=== PATIENT | male | born 1950 | race Caucasian/White ===

== ENCOUNTER → 2020-08-01 10:54 | Outpatient (CLI) | payer OTHER, SELFPAY ==
[2020-08-01] MEDS: COVID-19 VACC #1, MRNA(MOD) 100 MCG/0.5 ML VIAL IM (11:03)
== END ==
PROVIDERS: Visit Provider Internal Medicine
DX: Z23 Encounter for immunization (principal)
CPT/HCPCS: 0011A; 91301

== ENCOUNTER → 2020-08-29 10:31 | Outpatient (CLI) | payer OTHER, SELFPAY ==
[2020-08-29] MEDS: COVID-19 VACC #2, MRNA(MOD) 100 MCG/0.5 ML VIAL IM (10:41)
== END ==
PROVIDERS: Visit Provider Internal Medicine
DX: Z23 Encounter for immunization (principal)
CPT/HCPCS: 0012A; 91301

== ENCOUNTER → 2022-04-16 11:55 | Outpatient (CLI) | payer OTHER, SELFPAY ==
[2022-04-16 12:40] LABS: COVID19 -Nasal RAPID Negative (Negative)
== END ==
PROVIDERS: PCP Family Medicine; Referring Provider Orthopaedic Surgery Orthopaedic Surgery of the Spine; Visit Provider Orthopaedic Surgery Orthopaedic Surgery of the Spine
DX: Z20.822 Contact with and (suspected) exposure to COVID-19 (principal)
CPT/HCPCS: 87635; C9803

== ENCOUNTER 2022-04-19 06:17 | Inpatient (IN) | payer OTHER, SELFPAY ==
[2022-04-12 10:51] VITALS: BMI 33.6
[2022-04-19] VITALS (19 sets, daily range): BP systolic 106–154; BP diastolic 46–98; PULSE 77–111; RESP 11–91; TEMP 35.9–37.6; O2SAT 4–103; BMI 33.6
[2022-04-19] MEDS: LACTATED RINGERS 1,000 ML 42 ML IV ×2 (06:53→10:25)
[2022-04-19] MEDS: ACETAMINOPHEN 325 MG TABLET 975 MG PO (07:28)
[2022-04-19] MEDS: PREGABALIN 75 MG CAPSULE PO (07:28)
--- NOTE | 2022-04-19 07:46 | PM.PREOP ---
Pre-operative Note COVID-19 COVID-19 status: Negative Result date/Date tested (Pos, Neg/Pending): 04/18/22 Criteria for continued procedure: Expected advancement of disease process, Possibility delay results in more complex future surgery or treatment, Increased loss of function, Continuing or worsening of significant or severe pain, Deterioration of the patient's condition or overall health and Delay expected to result in less-positive ultimate med/surg outcome Interval Note History & Physical reviewed/Exam performed by Physician: Yes Changes to H&P: No
[2022-04-19] MEDS: CEFAZOLIN 2 GM/100 ML PREMIX 100 ML IV (07:55)
--- NOTE | 2022-04-19 08:29 | SUR.OPER ---
Prone on spine table, head in foam head support, padded chest and pelvic supports, gel pad at knees, lower legs supported by pillows; nipples, genitalia and toes free of pressure, arms secured on foam padded arm boards at <90 degrees abduction. Tape over blanket at thigh secured to table.
[2022-04-19] MEDS: BUPIVACAINE LIPOSOME 266 MG/20 ML VIAL INJ (08:33)
[2022-04-19] MEDS: BUPIVACAINE 0.25% (PF) VIAL 30 ML INJ (08:35)
--- NOTE | 2022-04-19 11:53 | P.OP_ITS ---
Operative Date/Time/Diagnoses Date of procedure: 04/19/22 Time of procedure: 07:40 Pre-op diagnosis: 1. L2-3, L3-4 spinal stenosis 2. L2-3, L3-4 spondylolisthesis Post-op diagnosis: same Procedure & Clinicians Procedure: 1. L2-3, L3-4 Postero-lateral and posterior interbody fusion 2. L2-3, L3-4 interbody cage placement. 3. L2-3, L3-4 decompressive laminectomy with bilateral facetecomies 4. L2-3, L3-4 Posterior segmental instrumentation 5. [place] of bone marrow from iliac crest 6. Utilization of microsurgical technique and operating microscope 7. Utilization of robotic assisted navigation Same procedure as scheduled: Yes Indications: Patient has been having chronic back pain and worsening lumbar radiculopathy. Patient failed multiple conservative management with worsening pain weakness and numbness in her lower extremity. Patient has been having difficulty performing activity of daily living. After discussing risks benefits of treatment options, patient elected proceed with surgery. Surgeon: Cara Marlow Senior Courtroom Clerk: Monik Rizzo Click Yes if Unassisted: No Anesthesia Type: General Operative Notes Closure Type: primary Specimen(s): none sent Prosthetic devices, grafts, tissues, transplants, or devices: Globus CREO MIS screws, Rise cages Applied: catheter Estimated Blood Loss (mL): 100 Blood products transfused: none Procedure in detail: Patient was seen in the preoperative area. Risks and benefits of the surgery was discussed with the patient. Informed consent was obtained from the patient and placed in the chart. Surgical site was marked. Patient was taken to the operative room. General anesthesia was administered. Prophylactic antibiotic was given to the patient less than 30 min before the incision was made. Patient was placed into a prone position on the Damon table. Patient's back was then prepped and draped in the sterile fashion. Time-out was performed at this time. After patient was prepped and draped, patient's PSIS was palpated and marked bilaterally. Small 1 cm incision was made over the PSIS for placement of the reference probes. Two trocar was placed into the PSIS 1 on each side. The reference probe was attached to the trocar of the reference apparatus. At this time the C-arm imaging was used to confirm AP and lateral of L2, L3-L4 vertebrae and merged the C-arm imaging using the [employer] robotic navigation system with the CT of the lumbar spine. After successful merging was completed and confirmed, skin marker was used to ev out the skin incision using the [employer] robotic arm. Bilateral incision was made at this time. Pre templated trajectory was used and guided using the [employer] robotic navigation system for bilateral L2 L3, L4 pedicle screw placement. This was done by using the robotic arm to guide the high-speed bur to make a cortical entry point. Next a drill was placed also using the robotic arm and guided using the navigation system drilling partially through bilateral L2, L3, L4 pedicles. Next L2, L3, L4 pedicle screws it was pre templated and measured was placed onto the power regional driver and inserted into the pedicles bilaterally. After all 6 screws were placed C-arm imaging was taken of both AP and lateral to co nfirm the placement. Excellent placement of the screws were confirmed and a matched precisely with the pre planned screw placement using the navigation system. MARs retractor was inserted using [employer] guidence. Globus MARS retractors was placed inside the incision and docked onto the L2, L3 lamina. Using microsurgical technique and operating microscope, a L3, L4 laminectomy and L2-3, L3-4 facetectomy was performed using a Kerrison rongeur. Patient was found have severe lateral recess and neural foramen stenosis which was fully decompressed after the laminectomy facetectomy. More than 75% of the facets were removed during the process of decompression rendering L2-3, L3-4 level grossly unstable and required a fusion procedure at the same time. The disc space at L2-3, L3-4 was identified, and a total diskectomy was performed at L2- 3, L3-4 level. The endplates were decorticated using a rasp and shaver. The total diskectomy and decortication was performed at L2-3, L3-4 level in order to to accomplish a L2-3, L3-4 fusion. The local bone from the laminectomy and facetectomy was saved for local bone grafting. After the total diskectomy and decortication was completed, Trifecta bone graft material was combined with local bone that was harvested earlier. At this time, a separate skin is incision was made over the iliac crest. A Jamshidi needle was inserted into the iliac crest through a separate skin incision. 5 cc of bone marrow aspiration was obtained through the separate skin incision using a Jamshidi needle from the iliac crest. The bone marrow aspirat ion was combined with local bone and the Trifecta bone grafting material. The bone grafting material was placed into the L2-3, L3-4 interbody space along with expandable cages. One cage each was inserted into the L2-3 L3-4 interbody space along with bone graft material. The cage was expanded to its maximum height using the torque limiting screwdriver. The disc preparation as well as the cage insertion were also performed under navigation guidance. After the cage was placed, AP and lateral C-arm imaging was taken to confirm placement of the cage and excellent position was confirmed. Globus MARS retractor was inserted and docked onto the L2-3, L3-4 posterolateral gutter on the right side. Using the power drill, posterior-lateral decortication was performed at L2-3, L3-4 level until bleeding cortical bone was identified. The remaining bone grafting material was placed into the L2-3, L3-4 posterior lateral gutter he order to accomplish posterolateral fusion at the L2- 3, L3-4 level. At this time the tulips were attached to the L2, L3-L4 pedicle screw shanks. After measuring the length of the rods, they were inserted into the tulips of the pedicle screws and locked in place using locking caps and torque limiting screwdriver bilaterally. Total 6 caps and 2 titanium rods was used in order to complete the posterior instrumentation construct. After all the hardware was placed, and confirmed with AP and lateral C-arm imaging, the wound was then irrigated with sterile normal saline and packed with Ray-Le gauze for 3 min to accomplish hemostasis. After the gauze was removed the deep fascia was closed with #1 Vicryl suture. The subcutaneous layer was closed with 2-0 Vicryl. The skin was closed with skin rosalva. Patient tolerated the procedure well. There were no complications. Neuro monitoring system was used to monitor patient's neurologic status throughout entire procedure. There was no disturbance of the neural monitoring signals throughout the case. Complications: none Post-operative Condition: stable Disposition: PACU Plan for aftercare: Admit to inpatient hospital
--- NOTE | 2022-04-19 12:00 | DI.RAD.S_ITS ---
PROCEDURE: XR LUMBAR SPINE 2-3V INDICATIONS: L2-3, L3-4 TLIF/ROBOT TECHNIQUE: 2 spot fluoroscopic intraoperative images of the lumbar spine. COMPARISON: [facility], [place], CT LUMBAR SPINE WITHOUT CONTRAST, 01/12/2022, 7:58. [facility], [place], XR LUMBAR SPINE 2 OR 3 VIEWS, 09/03/2019, 9:51. FINDINGS: Spot fluoroscopic intraoperative images demonstrate posterior fixation hardware at the L2-3 and L3-4 levels with pedicle screws , interbody rods, and disc spacers. Postsurgical changes are seen in the overlying soft tissues. IMPRESSION: Status post posterior lumbar spinal fusion with expected postoperative appearance. Approved by: Dennis Bajwa M.D. on 04/19/2022 at 13:03
[2022-04-19] MEDS: ALBUTEROL 2.5 MG/3 ML NEB (ADULT) INH (12:13)
[2022-04-19] MEDS: hydrOXYzine pamoate 25 MG CAPSULE PO ×2 (12:40→20:33)
[2022-04-19] MEDS: OXYCODONE IR 5 MG TABLET PO (12:42)
--- NOTE | 2022-04-19 13:01 | SUR.PHASEI ---
Pt awake, alert, continued to deny any respiratiory difficutly. O2 sat down to 82% on 5L intermittent then up to 95%. RT here. CPAP from home being set up at this time.
--- NOTE | 2022-04-19 13:04 | SUR.PHASEI ---
[address] Dillard. Pt denies SOB or respiratory difficulty. O2 sat 88-91% on 5L NC. Plan: use IS and consult respiratory PRN.
[2022-04-19] MEDS: SODIUM CHLORIDE 0.9% 1,000 ML 100 ML IV (13:56)
[2022-04-19] MEDS: CLINDAMYCIN 900 MG/50 ML PIGGYBACK 50 MG IV ×2 (14:31→20:47)
[2022-04-19] MEDS: HYDROMORPHONE 0.5 MG INJ IV (14:31)
[2022-04-19] MEDS: DUTASTERIDE 0.5 MG CAPSULE PO (14:38)
--- NOTE | 2022-04-19 16:07 | PT.IIE ---
Current Diagnoses Spondylolisthesis, lumbar region (04/19/22) Spinal stenosis, lumbar region with neurogenic claudication (04/19/22) Arthrodesis status (04/19/22) Surgery Performed Operation Date: 04/19/22 07:45 Actual Procedures p L2-3, L3-4 TLIF w. posterior instrumentation-Robot(Not Applicable) - Cara Marlow MD Surgical History (Last Updated 04/12/22 @ 11:22 by Michelle Mahoney, RN) H/O vasectomy History of lumbar spinal fusion (1976) Hx of bilateral cataract extraction Hx of heart artery stent (02/25/21) Medical History (Last Updated 04/12/22 @ 14:52 by Michelle Mahoney RN) Alcoholism COPD (chronic obstructive pulmonary disease) Easy bruisability Enlarged prostate Hearing impaired HLD (hyperlipidemia) HTN (hypertension) Myocardial infarction (02/23/21) ELAINE on CPAP RLS (restless legs syndrome) SCC (squamous cell carcinoma) Sciatica Spinal stenosis Physical Therapy Inpatient Evaluation/Re-Eval M1 PT/OT-IP Prior Functional Status Start: 04/19/22 15:13 Freq: NEEDED Status: Active Protocol: Document 04/19/22 16:07 AW (Rec: 04/19/22 17:14 AW [id number]) Medical Review Prior Functional Status Medical History Reviewed Yes Communication WNL Mobility and Gait Indpendent without device. Pt states that going up hills would cause a burning sensation along his low back and right buttock into his leg . Activities of Daily Living and IADL's Independent. Prior Functional Level (Other details) Pt has history of lumbar fusion in 1975. He had a cardiac stent placed in the last five years. He has ELAINE and manages with CPAP at home. Social History Household Members spouse Living Arrangements House Number of Floors (Floors) Two Floors Number of Stairs To Enter/Railing? 1 ELIJAH no rail. 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 There is a basement but pt does not need to go downstairs. Home Environment Standard Height Toilet,Walk in Shower Home Equipment Front Wheel Walker,Straight Cane,Hand Held Shower,Oilseed Meat Presser, Grab Bars In Shower Additional Social History Comment Pt has an adjustable bed. He lives with his spouse, Roxana, who is retired. She will be available and able to assist at discharge. 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 M2 PT-IP Current Condition Start: 04/19/22 15:13 Freq: NEEDED Status: Active Protocol: Document 04/19/22 16:07 AW (Rec: 04/19/22 17:14 AW [id number]) Physical Therapy Current Condition Current Condition Evaluation Date 04/19/22 Treatment Diagnosis s/p L2-3 L3-4 TLIF; difficulty in walking Onset Date 04/19/22 M3 PT-IP Subjective Start: 04/19/22 15:13 Freq: NEEDED Status: Active Protocol: Document 04/19/22 16:07 AW (Rec: 04/19/22 17:14 AW [id number]) Subjective Physical Therapy Visit Type Type Initial Evaluation Visit Start Time 15:35 Visit Stop Time 16:07 Total Visit Minutes 32 Notes Pt's spouse was present throughout Physical Therapy Visit Comments Patient Comments Pt is willing to participate with PT Patient Goals Return home with spouse support. Eventual return to work Therapy Pain Assessment Pain When Pain Assessed During Mobility Pain Present Pain Present Pain Reported Location Back Intensity 4 Scale Used Numeric (0 - 10) Pain Management Techniques Modification of Treatment,Re- positioning,Timing of Activity with Medications M4 PT-IP Mobility and Gait Start: 04/19/22 15:13 Freq: NEEDED Status: Active Protocol: Document 04/19/22 16:07 AW (Rec: 04/19/22 17:14 AW [id number]) PT-Bed Mobility Assessment Rolling Type of Rolling Log Rolling,Roll to Right Level of Assist Minimal Assistance,1 Person Assistance Supine to Sit Supine to Sit Minimal Assistance,1 Person Assistance Sit to Supine Sit to Supine Minimal Assistance,1 Person Assistance PT-Transfer Assessment Sit to and From Stand Sit to and from Stand Minimal Assistance,1 Person Assistance,Use of Upper Extremities Equipment Transfer Assistive Device Gait Belt,Front Wheeled Walker Orthotic/Prosthetic Devices or Brace: No Transfers Transfer Destination Bed Transfer Technique pt ambulated with FWW Transfer Ability Level of Assist Minimal Assistance,1 Person Assistance,Use of Upper Extremities Comments Mobility Comments Pt was lying in bed as PT arrived. SpO2 94% on 3L/min O2 . BP was 128/84 HR 116 at rest . RN was aware of tachycardia. Educated pt on back precautions and pt needed cues and min A to get up to right side of bed with log roll. He sat EOB and denied lightheadedness. He stood min A and used FWW to shift weight and take marching steps before walking 20 feet in the room. He was unsteady and needed CGA/min A. Pt began to complain of dizziness as he approached the bed again. Instructed pt to sit. BP was 111/76 HR 115 SpO2 94% on 3L/ min. Pt was assisted back to supine with reverse log roll min A. Left pt with call light and tray table in reach. Reported VS to RN. Gait Assessment Gait Gait Assistance Required: Contact Guard Assist,Minimum Assistance,1 Person Assist Distance (Feet) 20 Assistive Devices Assistive Device Gait Belt,Front Wheeled Walker Orthotic/Prosthetic Devices or Brace: No Gait Deviations General Gait Pattern Antalgic,Decreased Feet Clearance Factors Limiting Gait Function Factors Limiting Gait Function Decreased Strength,Limited Range of Motion,Pain,Poor Balance,Poor Safety Awareness Comments Gait Comments See mobility comments for details. Stair Climbing Assessment Comments Stair Climbing Comments Not assessed. PT-Balance Assessment Sitting Balance and Reactions Static Sitting Balance Ability Good Dynamic Sitting Balance Ability Good Standing Balance and Reactions Static Standing Balance Ability Fair Dynamic Standing Balance Ability Fair Device Used FWW M5 PT-IP Objective Assessments Start: 04/19/22 15:13 Freq: NEEDED Status: Active Protocol: Document 04/19/22 16:07 AW (Rec: 04/19/22 17:14 AW [id number]) Orientation Orientation/Cognition Level of Alertness Alert Orientation Name,Day of Week,Place, Situation Language Function Ability Hard of Hearing Gross Range of Motion Lower Extremity ROM Assessment Within Functional Limits Strength Lower Extremity Strength Hip 4/5 Knee 4+/5 Ankle 4+/5 Sensation Assessment Sensation Gross Sensation WNL M6 PT-IP Treatment Start: 04/19/22 15:13 Freq: NEEDED Status: Active Protocol: Document 04/19/22 16:07 AW (Rec: 04/19/22 17:14 AW [id number]) Physical Therapy Treatment Education Education Provided Precautions,Weight Bearing Status,Post-Op Packet,Safety Other Treatments Other Treatment Performed Educated pt and spouse on back precautions and log roll bed mobility. M7 PT-IP Assessment and Plan Start: 04/19/22 15:13 Freq: NEEDED Status: Active Protocol: Document 04/19/22 16:07 AW (Rec: 04/19/22 17:14 AW [id number]) PT Summary Assessment and Plan Potential Rehabilitation Potential Good Status of Condition at Evaluation Evolving Summary Impairments Pain,Strength,Balance,Bed Mobility,Transfers,Gait Assessment Summary Roberto is a 72 yo man seen for PT evaluation on POD0 following L2-3 L3-4 TLIF. He is independent in all regards at baseline. On assessment today, pt required min assist for bed mobility, ambulation with FWW, and transfers. He was limited by lightheadedness and persistent tachycardia. PT anticipates pt will progress during his hospital stay and be safe to discharge home with spouse support. Will continue to assess. Goals Bed Mobility Goal Independent Transfer Goal Independent,Front Wheeled Walker Gait Goal Independent,Front Wheel Walker Gait Distance 200 Other Goals Improve transfers and gait to independent without device Days to Meet Goals 2 Frequency of Treatment Frequency Of Treatment Twice a Day Treatment Plan Physical Therapy Treatment Plan Bed Mobility Training,Transfer Training,Gait Training, Therapeutic Exercise,Balance Retraining,Post Op Education, Discharge Planning,Hot or Cold Pack,Neuromuscular Re-ed Precautions Lumbar Precautions Log Roll,No Twisting,Limit Bending,Lifting Restriction of 10 lbs,Gait Belt above Incisional Area Other Precautions HR Recommendations To Nursing Amount of Assist Needed 1 Person Assist Discharge Recommendations PT Discharge Recommendations Home with Assistance Transportation Needs at Discharge Private Vehicle
[2022-04-19] MEDS: ACETAMINOPHEN 325 MG TABLET 650 MG PO (18:46)
[2022-04-19] MEDS: PRAMIPEXOLE 0.25 MG TABLET PO (20:26)
[2022-04-19] MEDS: EZETIMIBE 10 MG TABLET PO (20:26)
[2022-04-19] MEDS: DOCUSATE 100 MG CAPSULE PO (20:26)
[2022-04-19] MEDS: METOPROLOL ER 50 MG TABLET PO (20:26)
[2022-04-19] MEDS: TAMSULOSIN 0.4 MG CAPSULE PO (20:26)
[2022-04-19] MEDS: SENNOSIDES 8.6 MG TABLET 17.2 MG PO (20:26)
[2022-04-20] MEDS: HYDROMORPHONE 0.5 MG INJ IV (02:00)
[2022-04-20] MEDS: SODIUM CHLORIDE 0.9% 1,000 ML 100 ML IV (02:04)
[2022-04-20 03:57] VITALS: BP 119/71; PULSE 80; RESP 18; TEMP 37; O2SAT 94
--- NOTE | 2022-04-20 06:58 | PM.DS.1 ---
History of Present Illness History of Present Illness Date Patient Seen: 04/20/22 Time Patient Seen: 06:58 Chief complaint: TLIF w/ Robot Narrative: Operative Date/Time/Diagnoses Date of procedure: 04/19/22 Time of procedure: 07:40 Pre-op diagnosis: 1. L2-3, L3-4 spinal stenosis 2. L2-3, L3-4 spondylolisthesis Post-op diagnosis: same Procedure & Clinicians Procedure: 1. L2-3, L3-4 Postero-lateral and posterior interbody fusion 2. L2-3, L3-4 interbody cage placement. 3. L2-3, L3-4 decompressive laminectomy with bilateral facetecomies 4. L2-3, L3-4 Posterior segmental instrumentation 5. [place] of bone marrow from iliac crest 6. Utilization of microsurgical technique and operating microscope 7. Utilization of robotic assisted navigation Same procedure as scheduled: Yes Indications: Patient has been having chronic back pain and worsening lumbar radiculopathy. Patient failed multiple conservative management with worsening pain weakness and numbness in her lower extremity.? Patient has been having difficulty performing activity of daily living.? After discussing risks benefits of treatment options, patient elected proceed with surgery. Surgeon: Cara Marlow Short Haul Driver: Monik Rizzo Click Yes if Unassisted: No Anesthesia Type: General Operative Notes Closure Type: primary Specimen(s): none sent Prosthetic devices, grafts, tissues, transplants, or devices: Globus CREO MIS screws, Rise cages Applied: catheter Estimated Blood Loss (mL): 100 Blood products transfused: none Discharge Providers Provider Date of admission: 04/19/22 06:17 Discharge Date: 04/20/22 Primary care physician: Giovanny Farias DO Consults: 04/19/22 13:37 Consult to Occupational Therapy Evaluate & Treat Comment: Physician Instructions: Evaluate and treat Consult to Physical Therapy Evaluate & Treat Comment: Physician Instructions: Evaluate and Treat Discharge provider: Monik Rizzo PA-C Summary Hospital Course Discharge Diagnosis: Lumbar stenosis and spondylolisthesis s/p lumbar fusion Hospital Course: Mr Esparza hospital course was unremarkable. On POD# 1 he was feeling well and wanted to go home. He was eating without difficulty and his pain well-controlled w/ oral medication. He complained of incisional pain only; no leg pain. He was evaluated by PT and felt to be safe for discharge w/ family. Exam Vital Signs (past 8 hours): - 12/12/22 23:00 04/19/22 23:17 04/20/22 03:57 Temperature 99 F 98.6 F Pulse Rate 89 80 Respiratory Rate 18 18 Blood Pressure 106/46 L 119/71 Pulse Oximetry 90 L 91 94 Oxygen Flow Rate 2 3 0 Fraction of Inspired Oxygen 32 SaO2/FiO2 Ratio 290 Oxygen Delivery Method Nasal Cannula,CPAP Oxygen Flow Rate 0 Narrative Exam Narrative: 5/5 strength in hip flexors, quadriceps, hamstrings, DF, PF, EHL bilaterally. Sensation to light touch intact throughout BLE. Calves soft, compressible, nontender and without palpable cords or masses. Dressings placed intraoperatively are CDI. [facility] Medical History (Updated 04/12/22 @ 14:52 by Michelle Mahoney RN) Alcoholism COPD (chronic obstructive pulmonary disease) Easy bruisability Enlarged prostate Hearing impaired HLD (hyperlipidemia) HTN (hypertension) Myocardial infarction (02/23/21) ELAINE on CPAP RLS (restless legs syndrome) SCC (squamous cell carcinoma) Sciatica Spinal stenosis Surgical History (Updated 04/20/22 @ 07:06 by Monik Rizzo PA-C) H/O vasectomy History of lumbar spinal fusion (1976) Hx of bilateral cataract extraction Hx of heart artery stent (02/25/21) Social History household members: spouse Smoking Status: Former smoker alcohol intake: former Discharge Assessment & Plan Assessment and Plan Assessment: Lumbar stenosis and spondylolisthesis s/p lumbar fusion Plan of Treatment: D/C mary. PT should participate in 1-2 more sessions of PT today. If voiding independently and safe per PT, pt may discharge later today. Discharge Plan Discharge Plan Patient Disposition: Home Discharge orders & Medications Prescriptions: New oxycodone 5 mg Tablet 5 mg PO Q4H PRN (Reason: Pain, Moderate to Severe) Qty: 60 0RF docusate sodium 100 mg Capsule 100 mg PO BID PRN (Reason: constipation) Qty: 60 1RF hydroxyzine pamoate 25 mg Capsule 25 mg PO Q4HR PRN (Reason: muscle spasm) Qty: 60 0RF acetaminophen 325 mg Tablet 650 mg PO Q6HR PRN (Reason: Pain, Mild (1-3)) Qty: 240 0RF Continued atorvastatin 80 mg Tablet 80 mg PO DAILY metoprolol succinate 50 mg Tablet Extended Release 24 Hr 50 mg PO QPM aspirin [Aspir-81] 81 mg Tablet,Delayed Release (Dr/Ec) 81 mg PO DAILY tamsulosin 0.4 mg Capsule 0.4 mg PO BEDTIME pramipexole 0.25 mg Tablet 0.25 mg PO BEDTIME Label Comments: Pt occasionally takes extra dose during the day if needed albuterol sulfate 90 mcg/actuation Hfa Aerosol Inhaler 2 puff INHALATION Q4-6H PRN (Reason: Shortness Of Breath) valsartan-hydrochlorothiazide 160-25 mg Tablet 1 tab PO DAILY ezetimibe 10 mg Tablet 10 mg PO QPM dutasteride 0.5 mg Capsule 0.5 mg PO Q OTHER DAY Follow up/Referrals: Giovanny Farias DO [Primary Care Provider] - Cara Marlow MD [Physician] - As previously scheduled (Follow up w/ Dr Marlow on 04/29/2022 @ 1:00 pm at [facility] office in [place]) Diet/Activity/Treatments Diet: Diet as Tolerated Activity: No deep bending or twisting at the waist. No lifting more than 10 pounds. Skin/Wound/Dressing Care Report to your healthcare provider any signs of infection, such as:: chills, fever, night sweats, unusual drainage and unusual redness Dressing: May shower; keep dressing as dry as possible. If dressing becomes wet or dirty inside, remove and replace with clean, dry gauze. No bathing or otherwise soaking incisions. Do not apply any creams, lotions, or ointments to incisions. Visit Report/Discharge Packet Instructions: DI for Prescription Opioid Use, DI for Transforaminal Lumbar Interbody Fusion Stand Alone Forms: Surgery Discharge Discharge Data Primary Care Provider: Giovanny Farias Quality VTE Deep Vein Thrombosis/Pulmonary Embolism Present on Admission: No
[2022-04-20] MEDS: OXYCODONE IR 5 MG TABLET PO (07:05)
[2022-04-20 07:14] LABS: Hematocrit 38.7 % (41-53)
[2022-04-20 08:41] VITALS: BP 131/72; PULSE 87; RESP 18; TEMP 36.6; O2SAT 94
--- NOTE | 2022-04-20 09:11 | CM.DANOTE ---
DCP: Case received, EMR reviewed and met with patient. Introduced self and role. Was able to obtain information regarding patient's baseline activity status prior to hospitalization. DCP assessment completed with information currently available. Patient is a 72 year old male who admitted patient who admitted yesterday morning to the care of the orthopedic team. PCP: Dr. Farias. Payer: confirmed: [employer]. Patient came to the hospital via private vehicle for a surgical procedure. Patient had L2-3, L3-4 postero-lateral and posterior interbody fusion. Patient has history of spinal stenosis. Met with patient in his room. He was laying in bed, alert and oriented. Patient resides with spouse in [place]. 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 P: Patient has discharge orders for home today. He will work with [email or web address] again before he goes home. Aleta Germain RN/Tenter Frame Operator Discharge Planning/Care Management CM Discharge Assessment Start: 04/20/22 09:10 Freq: Status: Active Protocol: Document 04/20/22 09:10 (Rec: 04/20/22 09:11 [id number]) Discharge Planning Assessment Assigned Assistant Professor Of Education Aleta Germain RN/Tenter Frame Operator Advance Directives? Yes Advance Directives on File No History Provided By Patient,Medical Record Prior Living Arrangements House Household Members spouse Type of transporation used prior to Drives own vehicle admit Independent with ADL's Yes Is patient alert and oriented? Yes Caregiver for Another No Barriers to Discharge No Discharge Plan Home Transportation Arrangement Spouse Referrals Initiated None needed Whiteboard Updated in Patient Room with Yes name and ext. # of Assistant Professor Of Education Review Status In Process Next Review Type Continued Stay Review Pre-Anesthesia Assessment Start: 04/12/22 10:51 Freq: Status: Complete Protocol: Document 04/12/22 10:51 CAB (Rec: 04/12/22 11:46 CAB [id number]) Pre-Anesthesia Assessment Preferred Name Roberto Patient Information Reviewed Via Phone Assessment Assessment Completed With Patient Diagnostic Results BMP/CMP,CBC,EKG Comment Outside labs/ECG scanned, COVID screen @ 04/16/22 Primary Care Provider miguel coles Seen Specialist in Last 12 Months Yes Specialist Seen Baker Helper,Orthopedist, Detective Chief,Sleep specialist Comment Sleep visit scanned Primary Language Telugu Track Mechanic Required No Height 5 ft 7 in Weight 215 lb Body Mass Index (BMI) 33.6 Hearing Ability Hearing Impaired,Use of Hearing Aid Visual Impairment No Limitations Dentition Type Teeth, Natural Present,Teeth, Missing Barriers to Learning Auditory,Memory Hx Anesthesia Reactions No Hx Family Anesthesia Reaction No Hx Malignant Hyperthermia No Hx Blood Transfusions No Anesthesia Review Requested No alcohol intake former Alcohol Intake Frequency Other: Sober x 36 years Smoking Status Former smoker how long ago did patient quit smoking Quit approx 18 years ago Substance Use Type does not use Pain Present Pain Reported Musculoskeletal Symptoms Abnormal Gait,Back Pain, Difficulty Walking,Muscle Weakness,Radiating Pain into Limb History of Falling (Recent or History of No ) Patient is completely paralyzed or No completely immobile Mental Status Oriented to own ability Is patient on oxygen? No Does patient have ABBOTT/SOB Yes Hx Sleep Apnea Yes CPAP/BIPAP use prescribed and used routinely Will Bring CPAP/BIPAP DOS Yes Currently Taking a Beta Jignesh Yes: Metoprolol Can You Climb a Flight of Stairs Without No SOB Hx Chest Pain Yes: With NH, nothing since Hx SOB Yes Hx Syncope or Dizziness No Anti-Coagulant Therapy Yes: 81mg ASA ok to hold 7 days prior per Cardiology Has a Baker Helper Yes: Visit 04/07/[address] Flores Cardiac Testing No: Echo @ [facility] 02/24/21 Hx Pacemaker/ICD No Pacemaker Rep Required? No Comment Cardiac records scanned Diet Type At Home Regular Dysphagia No Gastrointestinal Symptoms None Urinary Catheter Present No Hx Urinary Self Catheterization No Diabetes No Presence of External or Internal Medical Yes: Bilat eye IOLs, CPAP, Devices cardiac stent Have you had any close contact with No someone diagnosed with COVID-19? Received a COVID vaccine? Yes Received all doses? No Marital Status Lives With spouse Current Living Arrangements House Number of Floors (Floors) Two Floors Support System Spouse Does the Patient Have Assistance After Yes Surgery Patient Discharge Plan Description Return Home Comment Pt advised possible 1-2 night length of stay per surgeon Feels Safe in Current Environment Yes Been Physically Hurt or Threatened By a No Person in Current Environment Do you have thoughts of harming yourself None or others? Are you currently considering suicide? No Do you have a plan to hurt yourself or No Plan others? Do You Have Any Spiritual Beliefs That No May Affect Your HC Choices? Do You Have Any Cultural Practices That No May Affect Your HC Choices? Comment Baptist Who Can We Speak to About Patient's Care Family, friends Identifying Code for Release of Patient Declines to issue Information Health Care Proxy/Next of Kin Roxana () Health Care Proxy Emergency Contact Name Katheryn (daughter) Emergency Contact Advance Directives? Yes Advance Directives on File No Requested Patient Bring Advanced Yes Directives DOS Power of Service Unit Operator Yes Power of Service Unit Operator Name Roxana () Power of Service Unit Operator PAC Instructions Bring CPAP/BIPAP,Durable medical equipment,Medications to take/avoid,Nasal antibiotic ,No ETOH/petroleum product on skin DOS,NPO,Post-op transportation,Sensory aids, Sturdy shoes/comfortable clothes,Do not bring valuables and remove jewelry
--- NOTE | 2022-04-20 09:46 | OT.IP.EVAL ---
Current Diagnoses Spondylolisthesis, lumbar region (04/19/22) Spinal stenosis, lumbar region with neurogenic claudication (04/19/22) Arthrodesis status (04/19/22) Surgery Performed Operation Date: 04/19/22 07:45 Actual Procedures p L2-3, L3-4 TLIF w. posterior instrumentation-Robot(Not Applicable) - Cara Marlow MD Past Medical History (Last Updated 04/12/22 @ 14:52 by Michelle Mahoney, RN) Alcoholism COPD (chronic obstructive pulmonary disease) Easy bruisability Enlarged prostate Hearing impaired HLD (hyperlipidemia) HTN (hypertension) Myocardial infarction (02/23/21) ELAINE on CPAP RLS (restless legs syndrome) SCC (squamous cell carcinoma) Sciatica Spinal stenosis Surgical History (Last Updated 04/12/22 @ 11:22 by Michelle Mahoney RN) H/O vasectomy History of lumbar spinal fusion (1976) Hx of bilateral cataract extraction Hx of heart artery stent (02/25/21) Occupational Therapy Inpatient Evaluation/Re-Eval M1 PT/OT-IP Prior Functional Status Start: 04/19/22 15:13 Freq: NEEDED Status: Active Protocol: Document 04/20/22 09:17 [facility] (Rec: 04/20/22 11:28 [facility] [id number]) Medical Review Prior Functional Status Medical History Reviewed Yes Communication WNL Mobility and Gait Indpendent without device. Pt states that going up hills would cause a burning sensation along his low back and right buttock into his leg . Activities of Daily Living and IADL's Independent. Prior Functional Level (Other details) Pt has history of lumbar fusion in 1975. He had a cardiac stent placed in the last five years. He has ELAINE and manages with CPAP at home. Social History Household Members spouse Living Arrangements House Number of Floors (Floors) Two Floors Number of Stairs To Enter/Railing? 1 ELIJAH no rail. Everything pt needs in on medical charge entry specialist. There is a basement but pt does not need to go downstairs. Home Environment Standard Height Toilet,Walk in Shower Home Equipment Front Wheel Walker,Straight Cane,Hand Held Shower,Clay Machine Operator, Grab Bars In Shower Additional Social History Comment Pt has an adjustable bed. He lives with his spouse, Roxana, who is retired. She will be available and able to assist at discharge. 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 M2 OT-IP Current Condition Start: 04/20/22 11:08 Freq: Status: Active Protocol: Document 04/20/22 09:17 [facility] (Rec: 04/20/22 11:28 [facility] [id number]) Occupational Therapy Current Condition Current Condition Evaluation Date 04/20/22 Treatment Diagnosis S/p L2-3, L3-4 TLIF Diagnosis Onset Date 04/19/22 Post Operative Precautions Lumbar Precautions Log Roll,No Twisting,Limit Bending,Lifting Restriction of 10 lbs,Gait Belt above Incisional Area M3 OT- IP Subjective and Pain Start: 04/20/22 11:08 Freq: Status: Active Protocol: Document 04/20/22 09:17 [facility] (Rec: 04/20/22 11:28 [facility] [id number]) OT- Subjective Occupational Therapy Visit Type Type Initial Evaluation Visit Start Time 09:17 Visit Stop Time 09:46 Total Visit Minutes 29 Occupational Therapy Visit Comments Patient Comments Pt agreed to get up and work with OT. Pt not wanting to shower or get dressed yet. Patient/Caregiver Goals TO go home. OT Pain Assessment Pain When Pain Assessed At Rest Pain Present Pain Present Pain Reported Location Back Intensity 3 Scale Used Numeric (0 - 10) M4 OT- IP ADL's Start: 04/20/22 11:08 Freq: Status: Active Protocol: Document 04/20/22 09:17 [facility] (Rec: 04/20/22 11:28 [facility] [id number]) OT [id number] Comments OT Self-Feeding Comments NOt at meal time. OT ADL-Grooming General Evaluation Grooming Ability Independent Areas Needing Assistance Retrieving/Set-up of Grooming Items Comments OT Grooming Comments Able to do while standing with FWW at the sink. OT ADL-Oral Care General Eval Oral Care Ability Standby Assistance Areas of Assistance Retrieving/Set-Up of Items Comments Oral Care Comments Able to do while standing with FWW at the sink. Pt needing initial vc to hinge at his hips or spit into a cup to best follow his back precautions. OT ADL-Dressing General Eval Lower Body Dressing Ability Standby Assistance,Maximum Assistance Comments OT Dressing Comments Able to show pt use of socks aid for sock management. Pt states already has a glass setter. OT ADL-Toileting General Evaluation Toileting Ability Standby Assistance Comments OT Toileting Comments Pt educated to stand over the toilet with the FWW to urinate . Pt just needing asisst to give him toielt paper to dab off. Spoke to pt about use of wet ones, to stand and wipe after a bowel movement would be easier at this time. OT ADL-Bathing Comments OT Bathing Comments Pt not wanting to shower at this time. M5 OT- IP IADL's Start: 04/20/22 11:08 Freq: Status: Active Protocol: Document 04/20/22 09:17 [facility] (Rec: 04/20/22 11:28 [facility] [id number]) OT-Instrumental Activities of Daily Living Home Safety Awareness Awareness of Need for Assistance at Home Good Awareness Ability to Problem Solve Emergency Able to Problem Solve Situations Medication Management Medication Management No Deficits Identified Money Management Money Management No Deficits Identified Meal Preparation Meal Preparation Comments Pt's spouse to assist. Charge Master Coordinator Charge Master Coordinator Caregiver Provides Assist M6 OT- IP Functional Cognition Start: 04/20/22 11:08 Freq: Status: Active Protocol: Document 04/20/22 09:17 [facility] (Rec: 04/20/22 11:28 [facility] [id number]) Cognitive Factors Limiting Selfcare Function Cognitive Ability Level of Alertness Alert Patient Orientation Name,Age,Birthday,Month,Date, Year,Day of Week,Place, Situation Attention Span Ability Capable of Focused Attention, Capable of Sustained Attention Ability to Follow Commands Able to Follow One Step Commands Cognitive Comments Cognitive Assessment Comments Pt able to follow all back precautions for ADL and mobility needs. Pt needing initial education to be sure to scoot forwards first and then push up form surfaces standing up from and to reach back to help slow down his descent. M7 OT- IP Mobility and Balance Start: 04/20/22 11:08 Freq: Status: Active Protocol: Document 04/20/22 09:17 [facility] (Rec: 04/20/22 11:28 [facility] [id number]) OT-Transfer Assessment Sit to and From Stand Sit to and from Stand Contact Guard Assistance, Minimal Assistance Transfers Transfer Ability Contact Guard Assistance Technique Transfer Destination Bed,Chair Transfer Technique Stand Step Pivot Devices Transfer Assistive Devices Gait Belt,Front Wheeled Walker Comments Mobility Comments Pt needing initially EMELI to stand as unsteady and having a hard time to coordinate sequence to come to stand, after practice much better. Pt needing heavy use of his arms on the FWW to get around. OT- Balance Assessment Sitting Balance and Reactions Static Sitting Balance Ability Good Dynamic Sitting Balance Ability Fair Standing Balance and Reactions Static Standing Balance Ability Fair Dynamic Standing Balance Ability Fair M8 OT- IP Objective Assessments Start: 04/20/22 11:08 Freq: Status: Active Protocol: Document 04/20/22 09:17 [facility] (Rec: 04/20/22 11:28 [facility] [id number]) OT-Muscle Tone Assessment Muscle Tone WNL Yes M9 OT- IP Assessment and Plan Start: 04/20/22 11:08 Freq: Status: Active Protocol: Document 04/20/22 09:17 [facility] (Rec: 04/20/22 11:28 [facility] [id number]) OT Summary Assessment and Plan Potential Rehabilitation Potential Good Analytic Complexity at Evaluation Low Summary OT Impairments Pain,Balance,Functional Mobility,Dressing,Toileting, Bathing,Toilet Transfers, Shower Transfers Progress Towards Goals Progressing Toward Goals Assessment Summary Pt is low complexity and main barriers are a step, coming to stand and will need assist for toileting, dressing , and bathing needs. Pt states his to be able to assist him at home. Pt to go home when medically stable. Goals Grooming Goal Independent Dressing Goal Minimal Assistance Toileting Goal Independent Bathing Goal Minimal Assistance Toilet Transfer Goal Independent Shower Transfer Goal Standby Assistance Days to Meet Goals 2 Frequency of Treatment Frequency Of Treatment Once a Day Treatment Plan OT Treatment Plan ADL Training,Functional Mobility,Patient/Family Education,Discharge Planning Discharge Recommendations OT Discharge Recommendations Home with Assistance Transportation Needs at Discharge Private Vehicle
[2022-04-20 09:48] VITALS: O2SAT 94
[2022-04-20] MEDS: DOCUSATE 100 MG CAPSULE PO (09:49)
[2022-04-20] MEDS: MAGNESIUM HYDROXIDE 30 ML UDC PO (09:49)
[2022-04-20] MEDS: VALSARTAN 80 MG TABLET 160 MG PO (09:49)
[2022-04-20] MEDS: ACETAMINOPHEN 325 MG TABLET 650 MG PO (09:49)
[2022-04-20] MEDS: ATORVASTATIN 20 MG TABLET 80 MG PO (09:50)
[2022-04-20] MEDS: ASPIRIN EC 81 MG TABLET PO (09:50)
[2022-04-20] MEDS: hydroCHLOROthiazide 25 MG TABLET PO (09:50)
--- NOTE | 2022-04-20 10:20 | PT.IPTN ---
Current Diagnoses Spondylolisthesis, lumbar region (04/19/22) Spinal stenosis, lumbar region with neurogenic claudication (04/19/22) Arthrodesis status (04/19/22) Surgery Performed Operation Date: 04/19/22 07:45 Actual Procedures p L2-3, L3-4 TLIF w. posterior instrumentation-Robot(Not Applicable) - Cara Marlow MD Physical Therapy Treatment Note M2 PT-IP Current Condition Start: 04/19/22 15:13 Freq: NEEDED Status: Active Protocol: Document 04/19/22 16:07 AW (Rec: 04/19/22 17:14 AW [id number]) Physical Therapy Current Condition Current Condition Evaluation Date 04/19/22 Treatment Diagnosis s/p L2-3 L3-4 TLIF; difficulty in walking Onset Date 04/19/22 M3 PT-IP Subjective Start: 04/19/22 15:13 Freq: NEEDED Status: Active Protocol: Document 04/20/22 10:20 AB (Rec: 04/20/22 11:51 AB [id number]) Subjective Physical Therapy Visit Type Type Treatment Note Visit Start Time 10:20 Visit Stop Time 10:50 Total Visit Minutes 30 Number of ENROBING MACHINE FEEDER Visits 0 Physical Therapy Visit Comments Patient Comments agreeable to do PT Therapy Pain Assessment Pain When Pain Assessed At Rest Pain Present Pain Present Pain Reported Location Back Intensity 3 Scale Used Numeric (0 - 10) Pain Management Techniques Distraction,Modification of Treatment,Re-positioning, Timing of Activity with Medications M4 PT-IP Mobility and Gait Start: 04/19/22 15:13 Freq: NEEDED Status: Active Protocol: Document 04/20/22 10:20 AB (Rec: 04/20/22 11:51 AB [id number]) PT-Bed Mobility Assessment Rolling Level of Assist Independent Supine to Sit Supine to Sit Standby Assistance Sit to Supine Sit to Supine Standby Assistance PT-Transfer Assessment Sit to and From Stand Sit to and from Stand Contact Guard Assistance, Minimal Assistance,1 Person Assistance,Use of Upper Extremities Equipment Orthotic/Prosthetic Devices or Brace: No Transfers Transfer Destination Bed,Chair Transfer Technique ambulated Transfer Ability Level of Assist Standby Assistance,1 Person Assistance,Use of Upper Extremities Comments Mobility Comments pt sitting on chair and agreeable to do PT. completed sit to stand min A and cues with unsteady transition to FWW and unsteady initial standing. instructed pt to sit back down min A for controlled descent. educated pt on sit<>stand technique and completed x 4 reps CGA to min A. steadier initial standing on last few repetitions. ambulated to the bed using FWW SBA. completed log roll supine<>sit SBA. stair climbing training conducted. pt stated that he has 2 steps to get into the house. prefers to use 2 SPC. educated pt on techniques. completed up/down platform step using 2 SPC min A ascending but min to mod descending. pt requested to use the toilet and ambulated towards the toilet using FWW SBA. call light within reach. set up caregiver training at 1 pm today. informed [facility] that pt using the toilet and will use call light. Gait Assessment Gait Gait Assistance Required: Standby Assistance Distance (Feet) 30 Able to Maintain Weight Bearing Status Yes During Gait Assistive Devices Assistive Device Gait Belt,Front Wheeled Walker Orthotic/Prosthetic Devices or Brace: No Gait Deviations General Gait Pattern Antalgic,Decreased Stride Length,Decreased Feet Clearance Factors Limiting Gait Function Factors Limiting Gait Function Decreased Activity Tolerance, Decreased Strength,Limited Range of Motion,Pain,Poor Balance,Poor Safety Awareness Stair Climbing Assessment Evaluation Level of Assist On Stairs Minimal Assistance,Moderate Assistance,1 Person Assistance Devices Stair Climbing Assistive Devices Straight Cane Technique/Endurance Stair Climbing Direction Ascend and Descend Stair Climbing Technique Step to Step Number of Steps Climbed 1 Stair Climbing Set # Repetitions (reps) 2 M5 PT-IP Objective Assessments Start: 04/19/22 15:13 Freq: NEEDED Status: Active Protocol: Document 04/19/22 16:07 AW (Rec: 04/19/22 17:14 AW [id number]) Orientation Orientation/Cognition Level of Alertness Alert Orientation Name,Day of Week,Place, Situation Language Function Ability Hard of Hearing Gross Range of Motion Lower Extremity ROM Assessment Within Functional Limits Strength Lower Extremity Strength Hip 4/5 Knee 4+/5 Ankle 4+/5 Sensation Assessment Sensation Gross Sensation WNL M6 PT-IP Treatment Start: 04/19/22 15:13 Freq: NEEDED Status: Active Protocol: Document 04/20/22 10:20 AB (Rec: 04/20/22 11:51 AB [id number]) Physical Therapy Treatment Education Education Provided Precautions,Safety M7 PT-IP Assessment and Plan Start: 04/19/22 15:13 Freq: NEEDED Status: Active Protocol: Document 04/20/22 10:20 AB (Rec: 04/20/22 11:51 AB [id number]) PT Summary Assessment and Plan Potential Rehabilitation Potential Good Summary Impairments Pain,ROM,Strength,Balance, Coordination,Sensation,Tone, Cognition,Bed Mobility, Transfers,Gait,Activity Tolerance Progress Towards Goals Slow Progress due to Pain,Slow Progress due to Activity Tolerance Assessment Summary pt requiring CGA to min A with sit to stand and min to mod A with stair climbing but only needing SBA for ambulation using FWW. caregiver training set up for today at 1 pm. pt plans to go home with spouse to assist him. will continue to assess progress. Goals Bed Mobility Goal Independent Transfer Goal Independent,Front Wheeled Walker Gait Goal Independent,Front Wheel Walker Gait Distance 200 Other Goals Improve transfers and gait to independent without device up/down 2 steps using B SPC SBA Days to Meet Goals 5 Frequency of Treatment Frequency Of Treatment Twice a Day Treatment Plan Physical Therapy Treatment Plan Bed Mobility Training,Transfer Training,Gait Training, Therapeutic Exercise,Balance Retraining,Post Op Education, Discharge Planning,Hot or Cold Pack,Neuromuscular Re-ed Precautions Lumbar Precautions Log Roll,No Twisting,Limit Bending,Lifting Restriction of 10 lbs,Gait Belt above Incisional Area Recommendations To Nursing Amount of Assist Needed 1 Person Assist Discharge Recommendations PT Discharge Recommendations Home with Assistance Transportation Needs at Discharge Private Vehicle
--- NOTE | 2022-04-20 13:04 | PT.IPTN ---
Current Diagnoses Spondylolisthesis, lumbar region (04/19/22) Spinal stenosis, lumbar region with neurogenic claudication (04/19/22) Arthrodesis status (04/19/22) Surgery Performed Operation Date: 04/19/22 07:45 Actual Procedures p L2-3, L3-4 TLIF w. posterior instrumentation-Robot(Not Applicable) - Cara Marlow MD Physical Therapy Treatment Note M2 PT-IP Current Condition Start: 04/19/22 15:13 Freq: NEEDED Status: Active Protocol: Document 04/19/22 16:07 AW (Rec: 04/19/22 17:14 AW [id number]) Physical Therapy Current Condition Current Condition Evaluation Date 04/19/22 Treatment Diagnosis s/p L2-3 L3-4 TLIF; difficulty in walking Onset Date 04/19/22 M3 PT-IP Subjective Start: 04/19/22 15:13 Freq: NEEDED Status: Active Protocol: Document 04/20/22 13:04 AB (Rec: 04/20/22 13:58 AB [email or web address]) Subjective Physical Therapy Visit Type Type Treatment Note Visit Start Time 13:04 Visit Stop Time 13:25 Total Visit Minutes 21 Number of MANAGER STUDENT SERVICES Visits 0 Physical Therapy Visit Comments Patient Comments agreeable to do PT M4 PT-IP Mobility and Gait Start: 04/19/22 15:13 Freq: NEEDED Status: Active Protocol: Document 04/20/22 13:04 AB (Rec: 04/20/22 13:58 AB [email or web address]) PT-Bed Mobility Assessment Rolling Type of Rolling Log Rolling Level of Assist Standby Assistance Supine to Sit Supine to Sit Standby Assistance Sit to Supine Sit to Supine Standby Assistance PT-Transfer Assessment Sit to and From Stand Sit to and from Stand Contact Guard Assistance, Minimal Assistance,1 Person Assistance,Use of Upper Extremities Equipment Transfer Assistive Device Gait Belt,Front Wheeled Walker Orthotic/Prosthetic Devices or Brace: No Comments Mobility Comments spouse in room for caregiver training. educated spouse on pt's precautions and log roll bed mobility. pt completed supine to sit log roll SBA. educated spouse on how to use safety belt and how to assist pt. pt completed sit <>stand x 3 reps. with more assistance and unsteady initial sit to stand. educated pt on techniques again. spouse assisting pt with sit to stand and completed safely. spouse assisted pt with ambulation in room using FWW and completed ~ 45 ft. pt completed up/down platform step using 2 SPC with spouse assisting and completed. pt ambulated back to his room using fWW SBA. completed sit to supine sBA. positioned pt in bed. call light and table placed within reach. pt and spouse without further concerns. Gait Assessment Gait Gait Assistance Required: Contact Guard Assist Distance (Feet) 45 Able to Maintain Weight Bearing Status Yes During Gait Assistive Devices Assistive Device Gait Belt,Front Wheeled Walker Orthotic/Prosthetic Devices or Brace: No Gait Deviations General Gait Pattern Decreased Stride Length, Decreased Feet Clearance Factors Limiting Gait Function Factors Limiting Gait Function Decreased Activity Tolerance, Decreased Sensation,Decreased Strength,Limited Range of Motion,Pain,Poor Balance,Poor Safety Awareness Stair Climbing Assessment Evaluation Level of Assist On Stairs Minimal Assistance,Moderate Assistance,1 Person Assistance Devices Stair Climbing Assistive Devices Straight Cane Technique/Endurance Stair Climbing Direction Ascend and Descend Stair Climbing Technique Step to Step Number of Steps Climbed 1 Stair Climbing Set # Repetitions (reps) 2 PT-Balance Assessment Sitting Balance and Reactions Static Sitting Balance Ability Normal Dynamic Sitting Balance Ability Good Standing Balance and Reactions Static Standing Balance Ability Fair Dynamic Standing Balance Ability Fair Device Used FWW M5 PT-IP Objective Assessments Start: 04/19/22 15:13 Freq: NEEDED Status: Active Protocol: Document 04/19/22 16:07 AW (Rec: 04/19/22 17:14 AW [id number]) Orientation Orientation/Cognition Level of Alertness Alert Orientation Name,Day of Week,Place, Situation Language Function Ability Hard of Hearing Gross Range of Motion Lower Extremity ROM Assessment Within Functional Limits Strength Lower Extremity Strength Hip 4/5 Knee 4+/5 Ankle 4+/5 Sensation Assessment Sensation Gross Sensation WNL M6 PT-IP Treatment Start: 04/19/22 15:13 Freq: NEEDED Status: Active Protocol: Document 04/20/22 13:04 AB (Rec: 04/20/22 13:58 AB [id number]) Physical Therapy Treatment Education Education Provided Precautions,Weight Bearing Status,Safety M7 PT-IP Assessment and Plan Start: 04/19/22 15:13 Freq: NEEDED Status: Active Protocol: Document 04/20/22 13:04 AB (Rec: 04/20/22 13:58 AB [id number]) PT Summary Assessment and Plan Potential Rehabilitation Potential Good Summary Impairments Pain,ROM,Strength,Balance, Coordination,Sensation,Tone, Cognition,Bed Mobility, Transfers,Gait,Activity Tolerance Progress Towards Goals Slow Progress due to Pain,Slow Progress due to Activity Tolerance Assessment Summary caregiver training conducted and spouse was able to assist pt safely with mobility. pt plans to go home today and may go home when medically stable . Goals Bed Mobility Goal Independent Transfer Goal Independent,Front Wheeled Walker Gait Goal Independent,Front Wheel Walker Gait Distance 200 Other Goals Improve transfers and gait to independent without device up/down 2 steps using B SPC SBA Days to Meet Goals 5 Frequency of Treatment Frequency Of Treatment Twice a Day Treatment Plan Physical Therapy Treatment Plan Bed Mobility Training,Transfer Training,Gait Training, Therapeutic Exercise,Balance Retraining,Post Op Education, Discharge Planning,Hot or Cold Pack,Neuromuscular Re-ed Precautions Lumbar Precautions Log Roll,No Twisting,Limit Bending,Lifting Restriction of 10 lbs,Gait Belt above Incisional Area Recommendations To Nursing Amount of Assist Needed 1 Person Assist Discharge Recommendations PT Discharge Recommendations Home with Assistance Transportation Needs at Discharge Private Vehicle
== END 2022-04-20 14:20 | disposition home or self-care (01) | DRG 455 ==
PROVIDERS: Admitting Provider Orthopaedic Surgery Orthopaedic Surgery of the Spine; PCP Family Medicine; Referring Provider Orthopaedic Surgery Orthopaedic Surgery of the Spine; Visit Provider Orthopaedic Surgery Orthopaedic Surgery of the Spine
PROC: 0SG10AJ Fusion of 2 or more Lumbar Vertebral Joints with Interbody Fusion Device, Posterior Approach, Anterior Column, Open Approach (ICD-10-PCS; principal; 2022-04-19 07:45)
DX: M43.16 Spondylolisthesis, lumbar region (principal); M48.062 Spinal stenosis, lumbar region with neurogenic claudication; E78.5 Hyperlipidemia, unspecified; I10 Essential (primary) hypertension; N40.0 Benign prostatic hyperplasia without lower urinary tract symptoms; G47.33 Obstructive sleep apnea (adult) (pediatric); Z98.1 Arthrodesis status; Z87.891 Personal history of nicotine dependence; Z20.822 Contact with and (suspected) exposure to COVID-19
CPT/HCPCS: 36415; 72100; 76000; 85014; 85018; 87635; 94760; 94762; 97116; 97162; 97165; 97530; 97535; C9803; C9290; J0330; J0690; J1100; J1170; J2405; J2704; J3010; J3490; J7613